=== PATIENT | female | born 1995 | race Caucasian/White ===

== ENCOUNTER 2023-11-13 08:51 | Emergency (ER) | payer BC, SELFPAY ==
[2023-11-13 08:52] VITALS: BP 130/76; PULSE 77; RESP 16; TEMP 35.8; O2SAT 98; BMI 32.2
--- NOTE | 2023-11-13 09:07 | ED.VIS.GI ---
HPI HPI - GI History of Present Illness Chief Complaint: GI Bleed Informant: patient Abdominal Pain/Flank Pain Onset: Month(s) (3) Context: Sudden Onset Timing: Waxes and wanes Quality: Dull Location: LLQ Worsened by: Food Relieved by: Nothing Nausea/Vomiting/Emesis GI Symptom: Positive for Nausea; Negative for Vomiting Diarrhea/Melena/Hematochezia GI Symptom: Positive for Hematochezia; Negative for Diarrhea or Melena Associated Symptoms Associated Symptoms: Negative for Dysuria, Frequency or Hematuria Narrative Narrative: Patient presents with rectal bleeding that has been waxing and waning over the past 3 months. Patient states that she also has pain in her left lower abdomen. Patient describes pain as dull. Patient states it is worse with eating. Patient states nothing makes it better. Patient states she has been passing some red blood and some clots in her stool. Patient states she has been feeling more fatigued recently. Patient denies any abnormal vaginal bleeding or discharge. Patient has an IUD in place and states she does not have periods because of this. Patient denies any fevers or chills. Patient admits to some nausea but denies any vomiting. [facility] Medical History (Updated 11/13/23 @ 11:[address] Judah Gavin DO) Depression Anxiety GERD (gastroesophageal reflux disease) Allergy/AdvReac Type Severity Reaction Status Date / Time codeine Allergy Intermediate Rash Verified 11/13/23 08:54 Surgical History (Updated 11/13/23 @ 09:[address] Judah Gavin DO) History of surgical removal of pilonidal cyst Social History Smoking Status: Never smoker ROS ROS ED Constitutional Constitutional ED: Denies chills or fever(s) Eyes Eyes: Denies blurry vision or change in vision ENT ENT ED: Denies rhinorrhea or sore throat Cardiovascular Cardiovascular: Denies chest pain or palpitations Respiratory/Chest Respiratory/Chest: Denies cough or dyspnea Gastrointestinal Gastrointestinal: Reports abdominal pain and nausea; Denies diarrhea or vomiting Genitourinary Genitourinary ED: Denies dysuria or hematuria Musculoskeletal Musculoskeletal: Denies back pain or neck pain Integumentary Denies abscess or rash Neurologic Neurologic: Denies headache(s) or weakness Allergic/Immunologic Allergic/Immunologic ED: Denies mouth swelling or urticaria EXAM Physical Exam Const Vital Signs: 11/13/23 08:52 11/13/23 10:52 Temperature 96.4 F L Temperature Source Temporal Pulse Rate 77 70 Respiratory Rate 16 16 Blood Pressure 130/76 H 112/72 Blood Pressure Mean 94 85 Pulse Ox 98 98 Oxygen Delivery Method Room Air Positive well nourished and well developed General Appearance ED: well developed and NAD HEENT Reports moist mucous membranes Neck supple and no JVD Resp normal respiratory effort and clear to auscultation bilaterally Cardio regular rate and regular rhythm GI non-distended Palpation: soft and tender LLQ and suprapubic; Negative for guarding or rebound tenderness present Rectal Exam: visual inspection normal, normal sphincter tone and heme negative stool Extremity full ROM General Extremety ED: Negative for edema General Extremity: Negative for edema Neuro CN's II-XII intact bilaterally, moves all extremities and no sensory deficits noted Sensorium / Orientation: alert Motor Exam: strength 5/5 throughout Psych mental status grossly normal and thought process normal MDM MDM MDM Narrative Medical decision making narrative: Differential diagnosis includes diverticulitis, colon mass, colitis, hemorrhoids, urinary tract infection, ureteral calculus, and gastroenteritis. CT scan of the abdomen pelvis will be obtained to assess for diverticulitis and colon mass. CBC will be obtained to assess for leukocytosis and anemia. Basic metabolic profile will be obtained to assess for electrolyte abnormality and renal function. PT with INR and PTT will be obtained to assess for coagulopathy. Serum hCG will be obtained to assess for . Urinalysis will be obtained to assess for urinary tract infection and hematuria. Stool will be obtained to assess for occult blood. Lab Data Attestation: I reviewed the patient's lab results. Lab results narrative: CBC was reviewed and was within the limits. Stool for occult blood was reviewed and was negative. Basic metabolic profile was reviewed and was within normal limits. PT with INR and PTT were reviewed and were within normal limits. Urinalysis was reviewed. There is no evidence of urinary tract infection or hematuria. Labs: Laboratory Results - last 24 hr 11/13/23 11/13/23 09:35 10:05 WBC 7.7 RBC 3.94 L Hgb 12.0 Hct 35.0 L MCV 88.8 MCH 30.5 MCHC 34.3 RDW Std Deviation 41.2 RDW Coeff of [place] 12.6 Plt Count MPV 10.3 Immature Gran % (Auto) 2.700 H Neut % (Auto) 54.1 Lymph % (Auto) 29.1 [place] % (Auto) 6.5 Eos % (Auto) 6.6 H Baso % (Auto) 1.0 Absolute Neuts (auto) 4.2 Absolute Lymphs (auto) 2.25 Nucleated RBC % 0 Differential Comment SCANNED Platelet Estimate ADEQUATE Plt Morphology Comment CLUMPED RBC Morphology NORM C+C PT Cancelled 14.2 INR Cancelled 1.1 APTT Cancelled 26.0 Sodium 138 Potassium 3.7 Chloride 106 Carbon Dioxide 29.0 Anion Gap 3 L BUN 9 Creatinine 0.65 Estim Creat Clear Calc 168.02 Est GFR (MDRD) Af Amer 141 Est GFR (MDRD) Non-Af 116 BUN/Creatinine Ratio 13.9 Glucose 100 Calcium 9.1 Serum , Qual NEGATIVE Urine Color Yellow Urine Clarity Clear Urine pH 7.0 Ur Specific [place] 1.005 Urine Protein Negative Urine Glucose (UA) Normal Urine Ketones Negative Urine Occult Blood Negative Urine Nitrite Negative Urine Bilirubin Negative Urine Urobilinogen Normal Ur Leukocyte Esterase 25 H Urine RBC 0 SEEN Urine WBC 0-5 SEEN Ur Squamous Epith Cells 5-10 SEEN Urine Bacteria 2+ Urine Mucus 0 SEEN Radiography Diagnostic Testing: Clinical Impression(s) from Imaging Studies Abdomen/Pelvis CT 11/13/23 09:14 IMPRESSION: Fatty infiltration of the liver. Scattered sigmoid diverticula. Electronically Signed: Ge Woodard MD at 10:37 EDT , CT scan of the abdomen pelvis was obtained. There are scattered sigmoid diverticula but there is no evidence of diverticulitis. There is some fatty infiltration of the liver. There is no ureteral calculus noted. This was interpreted by the radiologist and was also independently reviewed by myself. Treatment and Re-Evaluation :: Patient was given morphine and Zofran. Patient was feeling better on reevaluation. Patient was advised of her findings. Patient was instructed to follow-up with her primary care physician in 5 to 7 days. Patient was advised she may need further testing. Patient understood and was agreeable with the plan. All questions were answered. Discharge Plan Triage Chief Complaint: GI Bleed ED Provider: Judah Gavin Dx/Rx/DC Orders Clinical Impression: Rectal bleeding, Abdominal pain Instructions: ED Lower GI Bleeding (Stable) Primary Care Provider: Care Physician,Aicha Primary Referrals: Nell Bell MD [Med Staff - [facility] Up [facility]per] - 5-7 Days NOT,DEFINED [Non-Staff] - Print Language: Portuguese Disposition Disposition: Home, Self Care
--- NOTE | 2023-11-13 09:14 | CT_ITS ---
STUDY: CT ABDOMEN AND PELVIS WITH CONTRAST REASON FOR EXAM: Female, 27 years old. Abdominal pain. Blood in the stool. RADIATION DOSAGE (If Supplied By Facility): CTDIvol = ( 19.32 ) mGy, DLP = ( 1268.56 ) mGycm TECHNIQUE: Transaxial images were obtained from the dome of the diaphragm to the symphysis pubis without oral contrast. IV 100mL [id number]-[id number] was administered. Sagittal and coronal images were reconstructed. Individualized dose optimization techniques were used for this CT. COMPARISON: None. FINDINGS: The visualized lung bases are unremarkable. The visualized portions of the heart are within normal limits. There is decreased attenuation of the liver consistent with steatosis. Normal gallbladder and extrahepatic biliary system. Normal spleen. Normal pancreas. Normal bilateral adrenal glands. Normal right kidney. Normal left kidney. A retroaortic left renal vein is present. This is a normal variant. There is a small hiatal hernia. Normal small intestine. Scattered sigmoid diverticula. The appendix is visualized and appears normal. Normal abdominal aorta. Normal inferior vena cava. There is small retroperitoneal lymphadenopathy with enlarged nodes no greater than 10mm in the short axis diameter. Normal urinary bladder. IUD is seen within the uterus. Follicles are seen in the right ovary. Normal abdominal wall. Normal osseous structures. CT/Abdomen/Pelvis W IV Cont ONLY IMPRESSION: Fatty infiltration of the liver. Scattered sigmoid diverticula. Electronically Signed: Ge Woodard MD at 10:37 EDT ,
[2023-11-13 09:42] LABS: Mucous, Urine 0 SEEN /hpf (<or=2+); Red Blood Cells-Urine 0 SEEN /hpf (0-5)
[2023-11-13 09:46] LABS: Color, Urine Yellow (Yellow); Glucose, Dipstick Normal (Normal); Ketone-Dipstick Negative (Negative); Leukocyte Esterase-Dipstick 25 /ul (Negative); Nitrite-Dipstick Negative (Negative); Occult Blood-Urine Negative /ul (Negative); Protein-Dipstick Negative (Negative); Specific Gravity, Urine 1.005 (1.002-1.030); Urine Bilirubin Dipstick Negative (Negative); Urine Clarity Clear (Clear); Urine Urobilinogen Normal (Normal)
[2023-11-13] MEDS: Ondansetron 4 MG/2 ML Vial IV (09:51)
[2023-11-13 09:55] LABS: Internal QC Validated? YES +Cl - CLEAR BKGD; Pregnancy, Serum, hCG Quali. NEGATIVE Negative
[2023-11-13 09:57] LABS: Anion Gap 3 (5-15); BUN 9 mg/dL (7-18); BUN/Creat Ratio 13.9 RATIO (10-20); Bacteria 2+ /hpf (None Seen); Calcium,Total 9.1 mg/dL (8.5-10.1); Chloride 106 mmol/L (98-107); Creatinine, Serum 0.65 mg/dL (0.55-1.02); EST Glomerular Filtration Rate 116 mL/min (>60); Est Glom Filt Rate - Afr Amer 141 mL/min (>60); Estimated Creatinine Clearance 168.02 ml/min; Glucose 100 mg/dL (74-106); Potassium 3.7 mmol/L (3.5-5.1); Sodium Level 138 mmol/L (136-145); Squamous Epithelial Cells - UA 5-10 SEEN /hpf (5-10); White Blood Cells 0-5 SEEN /hpf (0-5)
[2023-11-13 10:02] LABS: Absolute Lymphocyte Count 2.25 X10^3/uL (0.83-4.51); Absolute Neutrophil Count 4.2 X10^3/uL (2.0-7.7); Basophil# 0.08 X10^3/uL; Eosinophil# 0.51 X10^3/uL; Eosinophils% 6.6 % (0-5); Lymphocyte # 2.25 X10^3/ul (0.83-4.51); Lymphocyte % 29.1 % (19-41); Mean Corp Hgb Conc 34.3 g/dL (32-36); Mean Corpuscular Hgb 30.5 pg (27.0-32.0); Mean Corpuscular Volume 88.8 fL (81-99); Mean Platelet Vol. 10.3 fl (6.2-12.0); Monocyte% 6.5 % (0-10); NRBC Flagged by Analyzer 0 % (0-5); Neutrophil # 4.17 X10^3/uL (2.7-7.7); Neutrophil % 54.1 % (47-70); POSITIVE COUNT YES; RBC Distribution Width CV 12.6 % (11.6-14.6); RBC Distribution Width SD 41.2 fl (35.1-43.9); Red Blood Count 3.94 M/mm3 (4.2-5.4); White Blood Count 7.7 K/mm3 (4.4-11.0)
--- NOTE | 2023-11-13 10:02 | NURSING ---
BLUE TOP CLOTTED, NEEDS REDRAWN. PRINTING LABEL IN ER
[2023-11-13 10:33] LABS: International Normalized Ratio 1.1; Prothrombin Time (Protime)PT. 14.2 SECONDS (11.7-14.9)
[2023-11-13 10:52] VITALS: BP 112/72; PULSE 70; RESP 16; O2SAT 98
[2023-11-13 11:25] LABS: Differential Comment SCANNED; Differential Indicated SCAN CRITERIA MET; Platelet Estimate ADEQUATE (ADEQ)
[2023-11-13 11:26] LABS: Platelet Morphology CLUMPED; Red Cell Morphology NORM C+C NORMAL (NORM C&C)
[2023-11-13 11:59] VITALS: BP 112/72; PULSE 70; RESP 16; TEMP 36.4; O2SAT 98
== END 2023-11-13 12:05 | disposition home or self-care (01) ==
PROVIDERS: Emergency Provider Emergency Medicine; Visit Provider Emergency Medicine
DX: K62.5 Hemorrhage of anus and rectum (principal); R10.32 Left lower quadrant pain
CPT/HCPCS: 74177; 80048; 81001; 82274; 84703; 85025; 85610; 85730; 96374; 96375; 99282; Q9967; A4216; J2405